=== PATIENT | female | born 1965 | race Caucasian/White ===

== ENCOUNTER 2018-03-24 10:47 | Emergency (ER) | payer MEDICAID ==
[~2018-03-24] VITALS: Ht 157.5 cm; Wt 83.6 kg
[2018-03-24 11:00] VITALS: BP 176/89
[2018-03-24] MEDS ORDERED: IBUPROFEN 400 MG TAB PO ONE (12:00)
[2018-03-24] MEDS ORDERED: LIDOCAINE 1% 500 MG/50 ML VIAL INJ SCH (12:00)
[2018-03-24 13:17] VITALS: BP 140/71
== END 2018-03-24 13:21 | disposition home or self-care (01) ==
LOC: MED 10:47
DX: M62.830 Muscle spasm of back (principal)
CPT/HCPCS: 20552; 99283; J2001